=== PATIENT | female | born 1990 | race Caucasian/White ===

== ENCOUNTER 2018-11-23 18:13 | Outpatient (CLI) | payer BC ==
[~2018-11-23] VITALS: Ht 177.8 cm; Wt 74.5 kg
[~2018-11-23 18:13] MED LIST: ALDACTONE50 MG; LEVORA-28 30 MC1 TA1; LEXAPRO20 MG; VIBRAMYCININJ
[2018-11-23 18:18] VITALS: TEMP 98.4
--- NOTE | 2018-11-23 19:00 | NUR ---
1844- Patient to [facility] from ED with via wheelchair. Patient into restroom to change into gown. Patient back to bed. EFM and TOCO on and tracing. Patient doctors at [place]. Patient has complaints of diarrhea since 11/19/18, with increased intensity of contractions over the past couple days. Patient has been seen at [facility] ED several times by her PCP since Tuesday and is unhappy with care received there and "wants answers". Patient has increased anxiety due to this baby being an IVF baby. Patient brought stool sample with her to the hospital. SVE Closed/High. Orders received by . remains on unit at this time. Assessment completed. 1899- IV started. LR bolus infusing. Labs drawn. 1914- Labs and stool sample sent to lab. 1929- Report given to SHANTEL Quinn.
[2018-11-23] MEDS ORDERED: PRENATAL MVI (19:13)
[2018-11-23 19:15] VITALS: BP 107/67; PULSE 80
--- NOTE | 2018-11-23 19:15 | NUR ---
Pt sitting up in bed, social, denies discomfort. IV infusing without difficulty, site without redness or swelling. Pt drinking water, requests crackers.
[2018-11-23 19:22] LABS: BASO % 0.3 % (0.0-2.0); EOS % 0.4 % (0-4.0); GRAN # 6.3 (1.4-6.5); GRAN % 62.8 % (42.2-75.2); HEMOGLOBIN 12.7 g/dl (12.5-16.0); LYMPH # 2.4 (1.2-3.4); LYMPH % 24.3 % (20.0-51.0); MEAN CELL VOLUME 91 fl (80.0-100.0); MEAN CORPUSCULAR HEMOGLOBIN 32 pg (27.0-31.0); MEAN CORPUSCULAR HGB CONC 35 g/dl (33.0-37.0); MEAN PLATELET VOLUME 10.9 fl (7.4-10.4); MONO # 1.1 (0.1-0.6); MONO % 10.7 % (1.7-9.3); PLATELET COUNT 236 K/mm3 (130-400); RED BLOOD COUNT 4.02 M/mm3 (4.10-5.30)
[2018-11-23 19:40] LABS: ALBUMIN 3.8 gm/dL (3.5-5.0); BILIRUBIN,TOTAL 1.1 mg/dL (0.0-1.0); CALCIUM 9.5 mg/dL (8.4-10.2); CREATININE, serum 0.37 (0.52-1.25); POTASSIUM 3.3 mmol/L (3.4-5.0); TOTAL PROTEIN 7.1 gm/dL (6.4-8.2)
[2018-11-23 20:07] LABS: HEMATOCRIT 36.6 % (37.0-47.0)
--- NOTE | 2018-11-23 20:20 | NUR ---
IV of LR infused. 100ml NS with 10meq Pottassium started to LW site per pump, within minutes pt reports IV site burning. No redness noted. Potassium piggybacked stopped. Mainline started of NS @100/ml hr, Potassium mini bag started as concurrent through IV pump @ 100mls/hr.
[2018-11-23 20:30] VITALS: BP 118/71; PULSE 81
[2018-11-23 21:00] VITALS: BP 120/56; PULSE 94
[2018-11-23 22:00] VITALS: BP 113/57; PULSE 80
[2018-11-23 22:30] VITALS: BP 113/60; PULSE 80
--- NOTE | 2018-11-23 22:45 | NUR ---
221- Report taken from SHANTEL Quinn. 2230- K+ #2 infusion complete. IV removed. EFM and TOCO off. 2245- Discharge instructions explained to patient and spouse. Will follow up with for lab results. Patient and spouse ambulatory off unit.
== END 2018-11-23 22:45 | disposition home or self-care (01) ==
LOC: COL.ER 18:13 → LDRO 18:14 → COL.ER 18:14 → EDSTATUS 18:33 → LDR 19:00 → LDRO 19:00 → LDR 22:45 → LDRO 22:45
PROVIDERS: Obstetrics & Gynecology
DX: Z34.93 Encounter for supervision of normal pregnancy, unspecified, third trimester (principal)
CPT/HCPCS: OP; J3480; J7050; J7120